=== PATIENT | female | born 1965 | race Caucasian/White ===

== ENCOUNTER → 2018-06-11 | Day surgery (SDC) | payer BC ==
[2018-06-09 16:52] LABS: BASOPHILS % 0.4 % (0.0-1.0); EOSINOPHILS # (AUTO) 0.1 (0.0-0.4); EOSINOPHILS % 2.2 % (0.0-6.0); HEMATOCRIT 34.6 % (34.2-44.1); HEMOGLOBIN 11.3 g/dL (12.0-16.0); LYMPHOCYTES # (AUTO) 2.1 (1.0-3.2); LYMPHOCYTES % 39.1 % (18.0-39.1); MEAN CORPUSCULAR HEMOGLOBIN 29.7 pg (28-32); MEAN CORPUSCULAR HGB CONC 32.7 g/dL (31-35); MEAN CORPUSCULAR VOLUME 90.8 fL (81-99); MONOCYTES # (AUTO) 0.5 (0.2-0.8); MONOCYTES % 9.1 % (4.4-11.3); NEUTROPHILS # (AUTO) 2.7 (2.1-6.9); NEUTROPHILS % 48.7 % (38.7-80.0); PLATELET COUNT 340 x10e3/uL (140-360); RED BLOOD COUNT 3.81 x10e6/uL (3.6-5.1); RED CELL DISTRIBUTION WIDTH 13.1 % (11.7-14.4)
[2018-06-09 17:23] LABS: ALANINE AMINOTRANSFERASE 23 IU/L (0-55); ALBUMIN 3.9 g/dL (3.5-5.0); ALBUMIN/GLOBULIN RATIO 1.3 (0.8-2.0); ALKALINE PHOSPHATASE 104 IU/L (40-150); ANION GAP 13.7 mmol/L (8-16); BLOOD UREA NITROGEN 18 mg/dL (7-26); BUN/CREATININE RATIO 20 (6-25); CALCIUM 9.6 mg/dL (8.4-10.2); CARBON DIOXIDE 24 mmol/L (22-29); CHLORIDE 106 mmol/L (98-107); CREATININE, SERUM 0.89 mg/dL (0.57-1.11); EST GLOMERULAR FILTRATION RATE > 60 ML/MIN (60-); GLUCOSE 88 mg/dL (74-118); POTASSIUM 3.7 mmol/L (3.5-5.1); SODIUM 140 mmol/L (136-145)
[~2018-06-11] MED LIST: ATORVASTATIN CA10 MG PO; BUPIVACAINE 0.5%/EPI 30 ML SDV INJ ONE; DEXAMETHASONE SOD PHOS INJ 4 MG/ML VIAL ONE; FENTANYL CITRATE/PF 100MCG/2 ML INJ ONE; HYDROCODONE/APAP 7.5MG-325MG 1 EA TAB ONE; LIDOCAINE HCL 2% LOCAL INJ 5 ML SDV VIAL INJ ONE; MIDAZOLAM HCL 2 MG/2 ML VIAL ONE; MORPHINE SULFATE INJ 4 MG/ML INJ 1ML ONE; ONDANSETRON HCL INJ 2MG/ML 2ML 2 MG/ML VIAL ONE; PROPOFOL IV EMULSION 10 MG/ML 20 ML VIAL ONE; SEVOFLURANE INHAL SOLN 250 ML PEN BTL ONE; VITAMIN D1000 UNI1 PO; simply sleep PO
--- OUTSIDE RECORDS SUMMARY | 2018-06-11 07:43 | XMS REPORT | Continuity of Care Document ---
Author Author [facility] Interface Address Unknown Phone Unavailable Problems Problem Status Onset Date Classification Date Reported Comments Source CHOLELITHIASIS Active 10/26/2014 [facility] Alopecia Resolved Problem 08/12/[address] [facility] Hyperlipidemia Active Problem 08/12/2017 [facility] Osteoarthritis<sup>1</sup> Resolved Problem 08/12/2017 shoulders and knee [facility] Polyp of colon Resolved Problem 08/12/2017 [facility] CHOLELITHIASIS NOS Active [facility] Medications Medication Details Route Status Patient Instructions Ordering Provider Order Date Source Amoxicillin 875 MG / Clavulanate 125 MG Oral Tablet [Augmentin 875-mg] 875 mg=1 tab, PO, Q12H, X 7 day, # 14 tab, 0 Refill(s), Pharmacy: [facility] [id number] No Longer Active 05/06/2017 [facility] Ondansetron 4 mg, 2 mL, Route: IVP, Drug form: INJ, ONCE, Dosing Weight 68.182, kg, PRN Nausea & Vomiting, Start date: 11/11/14 15:36:00Notes: (Same as: Zofran) MEDICATION WASTE Product Size: 4 mg Product Wasted: ___ mg No Longer Active 11/11/2014 [facility] Oxycodone Hydrochloride 1 MG/ML Oral Solution 10 mg, 10 mL, Route: NG, Drug form: LIQ, Q4H, Dosing Weight 68.182, kg, PRN Pain Score 7- 10, Start date: 11/11/14 15:36:00, Duration: 1 day, Stop date: 11/12/14 15:35:00Notes: (Same as: 'Roxicodone) No Longer Active 11/11/2014 [facility] Promethazine 6.25 mg, 0.25 mL, Route: IVPB, Drug form: INJ, ONCE, Dosing Weight 68.182, kg, PRN Nausea & Vomiting, Start date: 11/11/14 15:36:00Notes: Do not give IV push. (Same as: Phenergan) No Longer Active 11/11/2014 [facility] Flumazenil 0.2 mg, 2 mL, Route: IVP, Drug form: INJ, PRN, Dosing Weight 68.182, kg, PRN Benzodiazepine Reversal, Initial dose, Start date: 11/11/14 15:36:00, Duration: 1 day, Stop date: 11/12/14 15:35:00Notes: (Same as: Romazicon) No Longer Active 11/11/2014 [facility] Meperidine 12.5 mg, 0.5 mL, Route: IVP, Drug form: INJ, Q30Min, Dosing Weight 68.182, kg, PRN Other -See Comment, For shivering, Start date: 11/11/14 15:36:00, Duration: 2 doses or times, Stop date: Limited # of t imesNotes: (Same as: Demerol) "Use Precaution in Elderly, Seizure disorders, and Renal impairment" No Longer Active 11/11/2014 [facility] Naloxone 0.04 mg, 0.1 mL, Route: IVP, Drug form: INJ, Q2MIN, Dosing Weight 68.182, kg, PRN Narcotic Reversal, Start date: 11/11/14 15:36:00, Duration: 8 doses or times, Stop date: Limited # of timesNotes: Same as Narcan No Longer Active 11/11/2014 [facility] Ketorolac 30 mg, 1 mL, Route: IVP, Drug form: INJ, ONCE, Dosing Weight 68.182, kg, Start date: 11/11/14 15:36:00, Duration: 1 doses or times, Stop date: 11/11/14 15:36:00Notes: (Same as:Toradol) IV bolus must be given >15 seconds. Give IM administration slowly and deeply into the muscle. Not for use > 4 days MEDICATION WASTE Product Size: 30 mg Product Wasted: ___ mg Inactive 11/11/2014 [facility] Hydromorphone 0.5 mg, 0.25 mL, Route: IVP, Drug form: INJ, Q5Min, Dosing Weight 68.182, kg, PRN Pain Score 7-10, Start date: 11/11/14 15:36:00, Duration: 4 doses or times, Stop date: 11/12/14 0:00:00Notes: Same as: Dilaudid No Longer Active 11/11/2014 [facility] Acetaminophen 325 MG / Hydrocodone Bitartrate 5 MG Oral Tablet 1 tab, PO, Q4H, PRN Pain Score 4-6, # 20 tab, 0 Refill(s), given to patient Active 11/11/2014 [facility] Acetaminophen 325 MG / Hydrocodone Bitartrate 5 MG Oral Tablet 1 tab, Route: PO, Drug Form: TAB, Dosing Weight 68.182, kg, Q4H, PRN Pain Score 4-6, Start date: 11/11/14 15:28:00, Duration: 30 day, Stop date: 12/11/14 15:27:00Notes: (Same as: [place] 325/5) Do not exceed 4gm/day of acetaminophen. No Longer Active 11/11/2014 [facility] bupivacaine liposome 20 mL, Route: InFILtration(local), Drug Form: INJ, ONCALL, Start date: 11/11/14 13:00:00, Duration: 1 doses or times, Stop date: 11/12/14 0:00:00Notes: (Same as: Exparel) NOT FOR IV use Postoperative analgesia: Infiltration (local): Dose is based on surgical site and volume required to cover the area (in general, the maximum total dose is 266 mg). Bunionectomy: 7 mL into the tissues surrounding the osteotomy and 1 mL into the subcutaneous tissue of the surgical site (total dose=8 mL [106 mg]) Hemorrhoidectomy: 30 mL (20 mL vial diluted with 10 mL NS) divided and administered as 6 injections of 5 mL each (total dose=30 mL [266 mg]) Inactive 11/11/2014 [facility] Ofirmev 1,000 mg, 100 mL, Route: IV, Drug form: INJ, PRE OP, Start date: 11/11/14 6:00:00, Duration: 1 doses or times, Stop date: 11/11/14 23:00:00Notes: Infuse over 15 minutes Do not exceed 4gm/day of acetami nophen MEDICATION WASTE Product Size: 1000 mg Product Wasted: ___ mg No Longer Active 11/11/2014 [facility] scopolamine 1 patch, Route: TOP, Drug form: ERFILM, PRE OP, Start date: 11/11/14 6:00:00, Duration: 1 doses or times, Stop date: 11/11/14 23:00:00Notes: Change patch every 72 hours (Same as: Transderm-Scop) Inactive 11/11/2014 [facility] ceFAZolin 2 gm, 50 mL, Route: IVPB, Drug form: INJ, PRE OP, Start date: 11/11/14 6:00:00, Duration: 1 doses or times, Stop date: 11/11/14 23:00:00 Inactive 11/11/2014 [facility] tramadol hydrochloride 50 MG Oral Tablet 50 mg=1 tab, PO, Q8H, PRN Pain, # 60 tab, 0 Refill(s) Active 10/28/2014 [facility] Crestor PO, Every Other Day, 0 Refill(s) Active 10/28/2014 [facility] Allergies, Adverse Reactions, Alerts Substance Category Reaction Severity Reaction type Status Date Reported Comments Source Immunizations Immunization Date Given Site Status Last Updated Comments Source Results Order Name Results Value Reference Range Date Interpretation Comments Source CHEM PANEL Globulin 4.1 g/dL 2.0 - 4.0 11/11/2014 [facility] CHEM PANEL A/G Ratio 1.0 0.7 - 1.6 11/11/2014 [facility] CHEM PANEL B/C Ratio 14 6 - 25 11/11/2014 [facility] CHEM PANEL AGAP 12.1 meq/L 10.0 - 20.0 11/11/2014 [facility] CHEM PANEL eGFR 76 mL/min/1.73m2 11/11/2014 Result Comment: The eGFR is calculated using the CKD-EPI formula. In most young, healthy individuals the eGFR will be >90 mL/min/1.73m2. The eGFR declines with age. An eGFR of 60-89 may be normal in some populations, particularly the elderly, for whom the CKD-EPI formula has not been extensively validated. Use of the eGFR is not recommended in the following populations: Individuals with unstable creatinine concentrations, including patients and those with serious co-morbid conditions. Patients with extremes in muscle mass or diet. The data above are obtained from the National Kidney Disease Education Program (NKDEP) which additionally recommends that when the eGFR is used in patients with extremes of body mass index for purposes of drug dosing, the eGFR should be multiplied by the estimated BMI. [facility] CHEM PANEL Calcium Lvl 9.0 mg/dL 8.5 - 10.5 11/11/2014 [facility] CHEM PANEL Alk Phos 93 unit/L 39 - 136 11/11/2014 [facility] CHEM PANEL AST 30 unit/L 0 - 37 11/11/2014 [facility] CHEM PANEL ALT 30 unit/L 0 - 65 11/11/2014 [facility] CHEM PANEL Albumin Lvl 4.0 g/dL 3.5 - 5.0 11/11/2014 [facility] CHEM PANEL Total Protein 8.1 g/dL 6.4 - 8.4 11/11/2014 [facility] CHEM PANEL Bili Total 0.8 mg/dL 0.2 - 1.3 11/11/2014 [facility] CHEM PANEL Chloride Lvl 108 meq/L 95 - 109 11/11/2014 [facility] CHEM PANEL Sodium Lvl 139 meq/L 135 - 145 11/11/2014 [facility] CHEM PANEL Potassium Lvl 4.1 meq/L 3.5 - 5.1 11/11/2014 [facility] CHEM PANEL CO2 23 meq/L 24 - 32 11/11/2014 [facility] CHEM PANEL BUN 13 mg/dL 7 - 22 11/11/2014 [facility] CHEM PANEL Glucose Lvl 78 mg/dL 70 - 99 11/11/2014 [facility] CHEM PANEL Creatinine Lvl 0.9 mg/dL 0.5 - 1.4 11/11/2014 [facility] HEMATOLOGY Eosinophils # 0.1 K/CMM 0.0 - 0.5 11/11/2014 [facility] HEMATOLOGY Lymphocytes # 1.8 K/CMM 1.0 - 5.5 11/11/2014 [facility] HEMATOLOGY Monocytes # 0.4 K/CMM 0.0 - 0.8 11/11/2014 [facility] HEMATOLOGY Monocytes 6.8 % 2.0 - 12.0 11/11/2014 [facility] HEMATOLOGY Eosinophils 1.3 % 0.0 - 4.0 11/11/2014 [facility] HEMATOLOGY Basophils 0.5 % 0.0 - 1.0 11/11/2014 [facility] HEMATOLOGY Lymphocytes 32.6 % 20.0 - 40.0 11/11/2014 [facility] HEMATOLOGY Segs-Bands # 3.2 K/CMM 1.5 - 8.1 11/11/2014 [facility] HEMATOLOGY Segs 58.8 % 45.0 - 75.0 11/11/2014 [facility] HEMATOLOGY RDW 13.7 % 11.5 - 14.5 11/11/2014 [facility] HEMATOLOGY Platelet 300 K/CMM 133 - 450 11/11/2014 [facility] HEMATOLOGY MCV 91.9 fL 80.0 - 98.0 11/11/2014 [facility] HEMATOLOGY MPV 8.8 fL 7.4 - 10.4 11/11/2014 [facility] HEMATOLOGY MCHC 33.0 g/dL 32.0 - 36.0 11/11/2014 [facility] HEMATOLOGY MCH 30.3 pg 27.0 - 31.0 11/11/2014 [facility] HEMATOLOGY Hct 44.7 % 36.0 - 48.0 11/11/2014 [facility] HEMATOLOGY Hgb 14.7 g/dL 12.0 - 16.0 11/11/2014 [facility] HEMATOLOGY RBC 4.86 M/CMM 4.20 - 5.40 11/11/2014 [facility] HEMATOLOGY WBC 5.5 K/CMM 3.7 - 10.4 11/11/2014 [facility] Vital Signs Vital Sign Value Date Comments Source BMI Calculated 29.92 05/06/[address] [facility] Weight 74.205 05/06/[address] [facility] Temperature Oral (F) 98.3 F 05/06/[address] [facility] Height 157.48 cm 05/06/[address] [facility] Heart Rate 75 05/06/[address] [facility] Systolic (mm Hg) 130 05/06/[address] [facility] Diastolic (mm Hg) 87 05/06/[address] [facility] Systolic (mm Hg) 123 11/11/2014 [facility] Diastolic (mm Hg) 73 11/11/2014 [facility] Respitory Rate 15 11/11/2014 [facility] Heart Rate 63 11/11/2014 [facility] Heart Rate 81 11/11/2014 [facility] Respitory Rate 18 11/11/2014 [facility] Systolic (mm Hg) 137 11/11/2014 [facility] Diastolic (mm Hg) 96 11/11/2014 [facility] Weight 68.182 11/11/2014 [facility] Height 157.48 cm 11/11/2014 [facility] BMI Calculated 27.49 11/11/2014 [facility] Height 157.48 cm 10/28/2014 [facility] Weight 65.909 10/28/2014 [facility] BMI Calculated 26.58 10/28/2014 [facility] Encounters Location Location Details Encounter Type Encounter Number Reason For Visit Attending Provider ADM Date DC Date Status Source [facility] OBS Day Surgery [id number] Naeem Munoz 11/11/2014 11/12/2014 [facility] Outpatient [id number] [facility] 05/06/2017 Active [facility] [id number] [facility] 05/06/2017 05/07/[address] [facility] Procedures Procedure Code Date Perfomer Comments Source Colonoscopy<sup>1</sup> [id number] 03/22/[address] [facility] Hysterectomy<sup>2</sup> [id number] 04/22/[address] [facility] Appendectomy [id number] 04/22/1982 [facility] Bunionectomy [id number] [facility] Tonsillectomy [id number] [facility] Trigger finger [id number] [facility] Appendectomy [id number] [facility] Bunionectomy [id number] [facility] Hysterectomy [id number] [facility] Tonsillectomy [id number] [facility]
--- OUTSIDE RECORDS SUMMARY | 2018-06-11 07:43 | XMS REPORT | Summary of Care ---
Author Author [facility] Organization [facility] Address Unknown Phone Unavailable Encounter NICOLASA Landin(CASSIE) [id number] Date(s): 11/11/14 - 11/11/[address] Discharge Disposition: Home Attending Physician: Naeem Munoz MD Admitting Physician: Naeem Munoz MD Referring Physician: Naeem Munoz MD Vital Signs Most recent to 1 2 oldest [Reference Range]: Height 157.48 cm 157.48 cm (11/11/14 11:55 AM) (10/28/14 9:09 AM) Most recent to 1 2 oldest [Reference Range]: Blood Pressure 123/73 mmHg 137/96 mmHg [90-140/60-90 mmHg] (11/11/14 4:41 PM) (11/11/14 11:56 AM) Most recent to 1 2 oldest [Reference Range]: Respiratory Rate 15 BRMIN 18 BRMIN [14-20 BRMIN] (11/11/14 4:41 PM) (11/11/14 11:56 AM) Most recent to 1 2 oldest [Reference Range]: Peripheral Pulse 63 bpm 81 bpm Rate [60-100 bpm] (11/11/14 4:41 PM) (11/11/14 11:56 AM) Most recent to 1 2 oldest [Reference Range]: Weight 68.182 kg 65.909 kg (11/11/14 11:55 AM) (10/28/14 9:09 AM) Most recent to 1 2 oldest [Reference Range]: Body Mass Index 27.49 m2 26.58 m2 (11/11/14 11:55 AM) (10/28/14 9:09 AM) Problem List Condition Effective Dates Status Health Status Informant Hyperlipidemia(Confi Active rmed) Allergies, Adverse Reactions, Alerts Substance Reaction Severity Status NKDA Active Medications acetaminophen-hydrocodone 325 mg-5 mg oral tablet 1 tab, Route: PO, Drug Form: TAB, Dosing Weight 68.182, kg, Q4H, PRN Pain Score 4-6, Start date: 11/11/14 15:28:00, Duration: 30 day, Stop date: 12/11/14 15:27: 00 Notes: (Same as: [place] 325/5) Do not exceed 4gm/day of acetaminophen. Start Date: 11/11/14 Stop Date: 11/12/14 Status: Discontinued acetaminophen-hydrocodone 325 mg-5 mg oral tablet 1 tab, PO, Q4H, PRN Pain Score 4-6, # 20 tab, 0 Refill(s), given to patient Start Date: 11/11/14 Stop Date: 11/16/14 Status: Ordered bupivacaine liposome 20 mL, Route: InFILtration(local), Drug Form: INJ, ONCALL, Start date: 11/11/14 13:00:00, Duration: 1 doses or times, Stop date: 11/12/14 0:00:00 Notes: (Same as: Exparel) NOT FOR IV use Postoperative analgesia: Infi ltration (local): Dose is based on surgical site and volume required to cover th e area (in general, the maximum total dose is 266 mg).Bunionectomy: 7 mL into th e tissues surrounding the osteotomy and 1 mL into the subcutaneous tissue of the surgical site (total dose=8 mL [106 mg])Hemorrhoidectomy: 30 mL (20 mL vial dil uted with 10 mL NS) divided and administered as 6 injections of 5 mL each (total dose=30 mL [266 mg]) Start Date: 11/11/14 Stop Date: 11/11/14 Status: Completed ceFAZolin 2 gm, 50 mL, Route: IVPB, Drug form: INJ, PRE OP, Start date: 11/11/14 6:00:00, Duration: 1 doses or times, Stop date: 11/11/14 23:00:00 Start Date: 11/11/14 Stop Date: 11/11/14 Status: Completed Crestor PO, Every Other Day, 0 Refill(s) Start Date: 10/28/14 Status: Ordered flumazenil 0.2 mg, 2 mL, Route: IVP, Drug form: INJ, PRN, Dosing Weight 68.182, kg, PRN Alphonso zodiazepine Reversal, Initial dose, Start date: 11/11/14 15:36:00, Duration: 1 d ay, Stop date: 11/12/14 15:35:00 Notes: (Same as: Romazicon) Start Date: 11/11/14 Stop Date: 11/12/14 Status: Discontinued hydromorphone 0.5 mg, 0.25 mL, Route: IVP, Drug form: INJ, Q5Min, Dosing Weight 68.182, kg, MA N Pain Score 7-10, Start date: 11/11/14 15:36:00, Duration: 4 doses or times, St op date: 11/12/14 0:00:00 Notes: Same as: Dilaudid Start Date: 11/11/14 Stop Date: 11/12/14 Status: Completed ketOROLAC 30 mg, 1 mL, Route: IVP, Drug form: INJ, ONCE, Dosing Weight 68.182, kg, Start d ate: 11/11/14 15:36:00, Duration: 1 doses or times, Stop date: 11/11/14 15:36:00 Notes: (Same as:Toradol) IV bolus must be given >15 seconds. Give IM administration slowly and deeply into the muscle.Not for use > 4 days MEDICATION WASTE Product Size: 30 mgProduct Wasted: ___ mg Start Date: 11/11/14 Stop Date: 11/11/14 Status: Ordered meperidine 12.5 mg, 0.5 mL, Route: IVP, Drug form: INJ, Q30Min, Dosing Weight 68.182, kg, P RN Other -See Comment, For shivering, Start date: 11/11/14 15:36:00, Duration: 2 doses or times, Stop date: Limited # of times Notes: (Same as: Demerol) "Use Precaution in Elderly, Seizure disorders, and Re nal impairment" Start Date: 11/11/14 Stop Date: 11/12/14 Status: Discontinued naloxone 0.04 mg, 0.1 mL, Route: IVP, Drug form: INJ, Q2MIN, Dosing Weight 68.182, kg, MA N Narcotic Reversal, Start date: 11/11/14 15:36:00, Duration: 8 doses or times, Stop date: Limited # of times Notes: Same as Narcan Start Date: 11/11/14 Stop Date: 11/12/14 Status: Discontinued Ofirmev 1,000 mg, 100 mL, Route: IV, Drug form: INJ, PRE OP, Start date: 11/11/14 6:00:0 0, Duration: 1 doses or times, Stop date: 11/11/14 23:00:00 Notes: Infuse over 15 minutesDo not exceed 4gm/day of acetaminophen MEDICAT ION WASTE Product Size: 1000 mgProduct Wasted: ___ mg Start Date: 11/11/14 Stop Date: 11/12/14 Status: Discontinued ondansetron 4 mg, 2 mL, Route: IVP, Drug form: INJ, ONCE, Dosing Weight 68.182, kg, PRN Naus ea & Vomiting, Start date: 11/11/14 15:36:00 Notes: (Same as: Bonilla) MEDICATION WASTE Product Size: 4 mgProduct Was shama: ___ mg Start Date: 11/11/14 Stop Date: 11/12/14 Status: Discontinued oxyCODONE 5 mg/5 mL oral solution 10 mg, 10 mL, Route: NG, Drug form: LIQ, Q4H, Dosing Weight 68.182, kg, PRN Pain Score 7-10, Start date: 11/11/14 15:36:00, Duration: 1 day, Stop date: 11/12/14 15:35:00 Notes: (Same as: 'Roxicodone) Start Date: 11/11/14 Stop Date: 11/12/14 Status: Discontinued oxyCODONE 5 mg/5 mL oral solution 5 mg, 5 mL, Route: NG, Drug form: LIQ, Q4H, Dosing Weight 68.182, kg, PRN Pain S core 4-6, Start date: 11/11/14 15:36:00, Duration: 1 day, Stop date: 11/12/14 15 :35:00 Notes: (Same as: 'Roxicodone) Start Date: 11/11/14 Stop Date: 11/12/14 Status: Discontinued promethazine 6.25 mg, 0.25 mL, Route: IVPB, Drug form: INJ, ONCE, Dosing Weight 68.182, kg, P RN Nausea & Vomiting, Start date: 11/11/14 15:36:00 Notes: Do not give IV push. (Same as: Phenergan) Start Date: 11/11/14 Stop Date: 11/12/14 Status: Discontinued scopolamine 1 patch, Route: TOP, Drug form: ERFILM, PRE OP, Start date: 11/11/14 6:00:00, Du ration: 1 doses or times, Stop date: 11/11/14 23:00:00 Notes: Change patch every 72 hours (Same as: Transderm-Scop) Start Date: 11/11/14 Stop Date: 11/11/14 Status: Completed tramadol 50 mg oral tablet 50 mg=1 tab, PO, Q8H, PRN Pain, # 60 tab, 0 Refill(s) Start Date: 10/28/14 Stop Date: 11/17/14 Status: Ordered Results ELECTROLYTES Most recent to 1 oldest [Reference Range]: Sodium Lvl [135-145 139 mEq/L mEq/L] (11/11/14 12:04 PM) Potassium Lvl 4.1 mEq/L [3.5-5.1 mEq/L] (11/11/14 12:04 PM) Chloride Lvl [95-109 108 mEq/L mEq/L] (11/11/14 12:04 PM) CO2 [24-32 mEq/L] 23 mEq/L *LOW* (11/11/14 12:04 PM) AGAP [10.0-20.0 12.1 mEq/L mEq/L] (11/11/14 12:04 PM) CHEM PANEL Most recent to 1 oldest [Reference Range]: Creatinine Lvl 0.9 mg/dL [0.5-1.4 mg/dL] (11/11/14 12:04 PM) eGFR 76 mL/min/1.73m2 1 *NA* (11/11/14 12:04 PM) BUN [7-22 mg/dL] 13 mg/dL (11/11/14 12:04 PM) B/C Ratio [6-25] 14 (11/11/14 12:04 PM) Glucose Lvl [70-99 78 mg/dL mg/dL] (11/11/14 12:04 PM) Total Protein 8.1 g/dL [6.4-8.4 g/dL] (11/11/14 12:04 PM) Albumin Lvl [3.5-5.0 4.0 g/dL g/dL] (11/11/14 12:04 PM) Globulin [2.0-4.0 4.1 g/dL g/dL] *HI* (11/11/14:04 PM) A/G Ratio [0.7-1.6] 1.0 (11/11/14:04 PM) Calcium Lvl 9.0 mg/dL [8.5-10.5 mg/dL] (11/11/14:04 PM) ALT [0-65 unit/L] 30 unit/L (11/11/14:04 PM) AST [0-37 unit/L] 30 unit/L (11/11/14:04 PM) Alk Phos [39-136 93 unit/L unit/L] (11/11/14:04 PM) Bili Total [0.2-1.3 0.8 mg/dL mg/dL] (11/11/14 12:04 PM) 1Result Comment: The eGFR is calculated using the [...] from the National Kidney Disease Education Program ( NKDEP) which additionally recommends that when the eGFR is used in patients with extremes of body mass index for purposes of drug dosing, the eGFR should be mul tiplied by the estimated BMI. HEMATOLOGY Most recent to 1 oldest [Reference Range]: WBC [3.7-10.4 K/CMM] 5.5 K/CMM (11/11/14 12:04 PM) RBC [4.20-5.40 4.86 M/CMM M/CMM] (11/11/14 12:04 PM) Hgb [12.0-16.0 g/dL] 14.7 g/dL (11/11/14 12:04 PM) Hct [36.0-48.0 %] 44.7 % (11/11/14:04 PM) MCV [80.0-98.0 fL] 91.9 fL (11/11/14: PM) MCH [27.0-31.0 pg] 30.3 pg (11/11/14: PM) MCHC [32.0-36.0 33.0 g/dL g/dL] (11/11/14: PM) RDW [11.5-14.5 %] 13.7 % (11/11/14:04 PM) Platelet [133-450 300 K/CMM K/CMM] (11/11/14:04 PM) MPV [7.4-10.4 fL] 8.8 fL (11/11/14:04 PM) Segs [45.0-75.0 %] 58.8 % (11/11/14 12:04 PM) Lymphocytes 32.6 % [20.0-40.0 %] (11/11/14 12:04 PM) Monocytes [2.0-12.0 6.8 % %] (11/11/14 12:04 PM) Eosinophils [0.0-4.0 1.3 % %] (11/11/14: PM) Basophils [0.0-1.0 0.5 % %] (11/11/14:04 PM) Segs-Bands # 3.2 K/CMM [1.5-8.1 K/CMM] (11/11/14 12:04 PM) Lymphocytes # 1.8 K/CMM [1.0-5.5 K/CMM] (11/11/14 12:04 PM) Monocytes # [0.0-0.8 0.4 K/CMM K/CMM] (11/11/14 12:04 PM) Eosinophils # 0.1 K/CMM [0.0-0.5 K/CMM] (11/11/14 12:04 PM) Immunizations No data available for this section Procedures Procedure Date Related Diagnosis Body Site Appendectomy Bunionectomy Hysterectomy Tonsillectomy Social History Social History Type Response Smoking Status Never smoker; Exposure to Tobacco Smoke None; Cigarette Smoking Last 365 Days No; Reg Smoking Cessation Counseling No Assessment and Plan Extracted from: Title: Operative Note Author: Naeem Munoz MD Date: 11/11/14 PREOPERATIVE DIAGNOSIS: CHOLELITHIASIS; EPIGASTRIC ABDOMINAL PAIN, POSSIBLE GASTROESOPHAGEAL REFLUX DISEASE POSTOPERATIVE DIAGNOSIS: CHOLELITHIASIS; EPIGASTRIC ABDOMINAL PAIN, POSSIBLE GASTROESOPHAGEAL REFLUX DISEASE PROCEDURE PERFORMED: Laparoscopic cholecystectomy, robotic-assisted, single port. ESOPHAGOGASTRODUODENOSCOPY SURGEON: Naeem Munoz M.D. I was present for the entire surgery. MANAGER TRADE: SIDNEY ESQUIVEL MD, No qualified residents available for this surgery. ESTIMATED BLOOD LOSS: Less than 5 mL. FLUIDS GIVEN: 600ml ANESTHESIA: General endotracheal plus local. SPECIMEN: Gallbladder. BLOOD PRODUCTS GIVEN: NONE IMPLANTS: NONE WOUND CLASSSIFICATION: CLEAN CONTAMINATED OPERATIVE NOTE: The patient was brought to the operating room, positioned in supine position. Next, endotracheal tube was inserted. General anesthesia was administered. SHAMA hose and bilateral sequential decompression stockings had been placed for DVT prophylaxis. Orogastric tube was placed for stomach decompression. Patient urinated prior to procedure for bladder decompression. The abdomen was then prepped and draped in the usual sterile fashion. Patient identification, procedure confirmation, timeout process was done. Preoperative antibiotics were given within 1 hour of the incision time. The abdomen was then incised from the superior edge of the umbilicus to the inferior edge of the umbilicus in the midline. The incision was taken down through the rectus fascia. Rectus fascia was divided and the abdomen was entered under direct vision. Once this was done, approximately 2.5 cm length incision was made in the rectus fascia. The robotic single port device was then inserted into the abdomen. Next, using the camera port the abdomen was examined and showed a good candidate for single port surgery. Next, the camera port as well as the other single incisional ports were inserted under direct camera guidance as they were docked to the robot. The robot was docked. The gallbladder was dissected at the infundibulum using hook on cautery away from the viscera. The infundibulum-cystic duct junction wa s then further dissected, delineated. The cystic duct and common duct were identified. There was an anterior cystic artery, which was dissected, clipped proximally and distally and divided between the proximal and distal clips. The cystic duct as well as the artery to the cystic duct were also dissected and clearly delineated, clipped proximally and distally and divided between the proximal and distal clips. Once this was completed, the gallbladder was removed off the liver bed using electrocautery until it was completely removed. The robot was subsequently undocked and the single port device was removed along with the gallbladder itself. Once this was completed, the rectus fascia was closed using 0 Vicryl running suture followed by 4-0 Monocryl subcuticular closure for the skin. Dry dressings were applied. Attention was turned to the EGD. The endoscope was inserted through the oral cavity and directed into the esophagus under direct vision. The cervical mid and distal esophagus were checked, no abnormalities are noted. The GE junction was noted to be normal. The gastric cardia, body, antrum, and pylorus seemed normal. Two random biopsies were taken for H pylori for the patient's symptoms. The duodenum was then examined till 3rd portion and appeared normal. The endoscope was withdrawn under direct vision with aspiration of all air and fluid until it was completely removed. The patient tolerated the procedure well and was subsequently extubated and moved to recovery room in good condition. All needle, sponge, and instrument counts were correct prior to and after skin closure. The local anesthesia had been infiltrated into the periumbilical area as a field and regional block.
--- OUTSIDE RECORDS SUMMARY | 2018-06-11 07:43 | XMS REPORT ---
Author Author [facility] Address Unknown Phone Unavailable Care Team Providers Care Steward/[employer]ward[employer] Name Role Phone Unavailable Unavailable Payers Payer Name Policy Type Policy Number Effective Date Expiration Date Problems This patient has no known problems. Allergies, Adverse Reactions, Alerts This patient has no known allergies or adverse reactions. Medications This patient has no known medications.
--- OUTSIDE RECORDS SUMMARY | 2018-06-11 07:43 | XMS REPORT | Summary of Care ---
Author Author [facility] Organization [facility] Address Unknown Phone Unavailable Encounter NICOLASA Landin(CASSIE) [id number] Date(s): 05/06/17 - 05/06/17 [facility] Primary Care [address] [place] [phone] Discharge Disposition: Home or Self Care Attending Physician: Demarcus Miles MD Vital Signs Most recent to 1 oldest [Reference Range]: Height 157.48 cm (05/06/17 9:46 AM) Temperature Oral 98.3 DegF [96.4-99.1 DegF] (05/06/17 9:46 AM) Blood Pressure 130/87 mmHg [90-140/60-90 mmHg] (05/06/17 9:46 AM) Peripheral Pulse 75 bpm Rate [60-100 bpm] (05/06/17 9:46 AM) Weight 74.205 kg (05/06/17 9:46 AM) Body Mass Index 29.92 m2 (05/06/17 9:46 AM) Problem List Condition Effective Dates Status Health Status Informant Alopecia(Confirmed) Resolved Hyperlipidemia(Confi Active rmed) Osteoarthritis(Confi Resolved rmed)1 Polyp of Resolved colon(Confirmed) 1shoulders and knee Allergies, Adverse Reactions, Alerts Substance Reaction Severity Status NKDA Active Medications Augmentin 875 mg oral tablet 875 mg=1 tab, PO, Q12H, X 7 day, # 14 tab, 0 Refill(s), Pharmacy: [email or web address] [id number] Start Date: 05/06/17 Stop Date: 05/13/17 Status: Completed Results No data available for this section Immunizations No data available for this section Procedures Procedure Date Related Diagnosis Body Site Status Colonoscopy1 03/2016 Completed Hysterectomy2 1988 Completed Appendectomy 1982 Completed Bunionectomy Completed Tonsillectomy Completed Trigger finger Completed 1Polyps 2Prolapse Uterus Social History Social History Type Response Substance Abuse Use: None. Sexual Sexually active: Yes. Exercise Exercise duration: 60. Exercise frequency: 3-4 times/week. Employment/School Status: Employed. Alcohol Current, Frequency: 1-2 times per week. Smoking Status Never smoker; Exposure to Tobacco Smoke None; Cigarette Smoking Last 365 Days No; Reg Smoking Cessation Counseling No entered on: 05/06/17 Assessment and Plan No data available for this section
[2018-06-11 15:55] VITALS: BP 122/82
--- NOTE | 2018-06-11 19:25 | Operative Report ---
DATE OF PROCEDURE: 06/11/2018 PREOPERATIVE DIAGNOSIS: Left breast mass, probable radial scar on needle biopsy. POSTOPERATIVE DIAGNOSIS: Left breast mass, probable radial scar on needle biopsy, pending permanent section. OPERATION PERFORMED: Left partial mastectomy with preoperative ultrasound-guided needle localization and intraoperative specimen mammography. ANESTHESIA: General. COMPLICATIONS: None. ESTIMATED BLOOD LOSS: Minimal. DESCRIPTION OF PROCEDURE: With the patient lying in bed in supine position and a good general anesthesia after having undergone a needle localization of the area in question, the left breast was prepped with Betadine solution and draped in the usual manner. The area overlying the entrance of the wire was then infiltrated with 0.25% Marcaine with epinephrine, an incision was made, and the wire was then followed down to the area in question. The area in question was then slowly and carefully encircled and removed. There was a lot of abnormal-looking tissue that appeared to be almost like a calcification of the breast tissue. The area was completely removed and sent for specimen mammography, which confirmed that the area in question had been removed. After this was done, the whole area was thoroughly irrigated, perfect hemostasis was ascertained. The breast tissue was then reapproximated with interrupted sutures of 2-0 chromic and the skin was closed with subcuticular 5-0 Vicryl and Dermabond. The sponge, lap, and needle count was correct. The patient tolerated the procedure well and returned to the recovery room in stable condition. MD VIPUL Ricardo/RILEY /[id number]
== END | disposition home or self-care (01) ==
LOC: OR 07:24
PROVIDERS: ATTEND Surgery
DX: N60.32 Fibrosclerosis of left breast (principal); N64.1 Fat necrosis of breast; Z01.810 Encounter for preprocedural cardiovascular examination; Z01.812 Encounter for preprocedural laboratory examination
CPT/HCPCS: 19281; 19301; 36415; 80053; 85025; 88307; 93005; J1100; J2001; J2250; J2270; J2405; J2704